=== PATIENT | male | born 1955 | race Asian ===

== ENCOUNTER 2020-05-26 17:20 | Emergency (ER) | payer SELFPAY ==
[~2020-05-26] VITALS: Ht 167.6 cm; Wt 72.6 kg
--- NOTE | 2020-05-26 17:24 | NUR ---
PT TO REMAIN IN ER TRIAGE, NO BEDS ARE CURRENTLY AVAILABLE.
[2020-05-26 17:25] VITALS: BP_SYST 113
--- NOTE | 2020-05-26 17:25 | NUR ---
PT AAO AND AMBULATORY FELL OFF A LADDER TODAY ONTO HIS BACK AND LEFT SIDE. PT REPORTS 10/10 PAIN SCALE CURRENTLY. PT DENIES LOC OR HEAD INJURY.
--- NOTE | 2020-05-26 17:30 | NUR ---
ER Dr. WHITAKER IN TRIAGE examining patient.
[2020-05-26] MEDS ORDERED: HYDROcodone/ACETAMIN 5-325 MG TAB (NORCO/ VICODIN) PO ONE (17:45)
--- NOTE | 2020-05-26 20:05 | NUR ---
PT MOVED TO [facility] FOR RE-EVALUATION.
--- NOTE | 2020-05-26 21:38 | NUR ---
Patient to ER bed 4 to gown for evaluation. Side rails up. Report given to VALENTIN.
--- NOTE | 2020-05-26 22:30 | NUR ---
Patient to be transferred to [facility] . Is being transferred due to higher level of care. Receiving facility has accepting physician and available space. ER physician has signed transfer form. Patient or responsible democrat has agreed to transfer and signed form. Patient belongings inventoried and will be sent with patient. Copy of nursing notes, lab reports, EKG, Physicians Orders and X-rays to be sent with patient. Report called to at receiving facility. Receiving physician is Dr Cabrera. [facility] ambulance service has been called for transfer. ETA is 2300.
[2020-05-27 00:02] VITALS: BP_SYST 139
== END 2020-05-26 22:30 | disposition short-term general hospital (02) ==
LOC: SED 17:20
DX: S22.49XA Multiple fractures of ribs, unspecified side, initial encounter for closed fracture (principal); S09.90XA Unspecified injury of head, initial encounter; I61.6 Nontraumatic intracerebral hemorrhage, multiple localized; W01.0XXA Fall on same level from slipping, tripping and stumbling without subsequent striking against object, initial encounter; Y93.89 Activity, other specified; Y92.89 Other specified places as the place of occurrence of the external cause; Y99.8 Other external cause status
CPT/HCPCS: 70450-TC; 71045; 71250-TC; 72125-TC; 99291